=== PATIENT | female | born 1950 | race Caucasian/White ===

== ENCOUNTER 2019-05-28 15:21 | Day surgery (SDC) | payer MEDICARE ==
[2019-05-28] MEDS ORDERED: GLUCAGON,HUMAN RECOMB 1 MG INJ ONE (16:34)
[2019-05-28] MEDS ORDERED: FLUMAZENIL INJ 0.5 MG/5 ML VIAL ONE (16:34)
[2019-05-28] MEDS ORDERED: DIPHENHYDRAMINE HCL 50 MG/ML VIAL ONE (16:34)
[2019-05-28] MEDS ORDERED: ONDANSETRON HCL INJ/PF 4 MG/2 ML SDV ONE (16:34)
[2019-05-28] MEDS ORDERED: EPINEPHRINE INJ 1 MG/10 ML DISP.SYRIN ONE (16:34)
[2019-05-28] MEDS ORDERED: NALOXONE HCL INJ/PF 0.4 MG/1 ML SDV ONE (16:34)
[2019-05-28] MEDS: MIDAZOLAM 2 MG/2 ML INJ ONE ×2 (17:22→17:29)
[2019-05-28] MEDS: FENTANYL CITRATE INJ/PF 100 MCG/2 ML AMPUL ONE ×2 (17:24→17:31)
--- NOTE | 2019-05-28 17:49 | Operative Report ---
Operative Report DATE OF SURGERY: 05/28/19 Operative Report: Pre-op diagnosis: History of gastric vascular ectasia and iron deficiency anemia Post-op diagnosis: 1. 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 The upper endoscope was inserted into the esophagus under direct vision and advanced into the stomach. The duodenum was entered and examined to the second part. Endoscope was then slowly pulled out of the patient as the mucosa was examined into details. Patient tolerated procedure well. Findings Esophagus: Normal Z-line at: 38 cm Antrum: There was some oozing of blood from an area of ectasia in the antrum noted at the beginning of the procedure. This area was cauterized. Other areas of mild vascular ectasia was identified in the antrum and was also cauterized using the APC probe Body: Normal Fundus: A 2 mm angiodysplasia was cauterized. Duodenum first part: 1 mm angiodysplasia cauterized Duodenum second part: Normal Plan: Await pathology. Use omeprazole daily for 2 months OPERATION: EGD with argon plasma coagulation
[2019-05-28 18:43] VITALS: BP 132/76
== END 2019-05-28 18:40 | disposition home or self-care (01) ==
LOC: END 15:21
PROVIDERS: ATTEND Internal Medicine Gastroenterology
DX: K31.811 Angiodysplasia of stomach and duodenum with bleeding (principal); Q27.33 Arteriovenous malformation of digestive system vessel; D50.0 Iron deficiency anemia secondary to blood loss (chronic)
CPT/HCPCS: 43255; J2250; J3010; J0171; J1200; J1610; J2310; J2405; J3490